=== PATIENT | male | born 1970 | race Caucasian/White ===

== ENCOUNTER 2018-09-15 11:39 | Emergency (ER) | payer OTHER ==
[~2018-09-15] VITALS: Ht 170.2 cm; Wt 99.8 kg
[2018-09-15 12:22] VITALS: BP 129/77
--- NOTE | 2018-09-15 12:50 | NUR ---
c/o posterior neck, shoulders, and lower back pain exacerbation x today----denies recent injury, denies incontinence---ambulatory with steady gait . DENIES N/V/D; SKIN IS PINK/WARM/DRY; AAOX4 WITH EVEN AND STEADY GAIT; LUNGS CLEAR BL; HR EVEN AND REGULAR; PT DENIES ANY FEVER, CP, SOB, OR COUGH AT THIS TIME; PATIENT STATES PAIN OF 10/10 AT THIS TIME; VSS; PATIENT POSITIONED FOR COMFORT; HOB ELEVATED; BEDRAILS UP X2; BED DOWN. ER MD MADE AWARE OF PT STATUS.
[2018-09-15] MEDS ORDERED: KETOROLAC 60 MG/2 ML VIAL IM ONE (13:40)
[2018-09-15] MEDS ORDERED: traMADol 50 MG TAB PO ONE (13:40)
[2018-09-15 14:17] VITALS: BP 129/77
--- NOTE | 2018-09-15 14:18 | NUR ---
Patient discharged with v/s stable. Written and verbal after care instructions given and explained. Patient alert, oriented and verbalized understanding of instructions. Ambulatory with steady gait. All questions addressed prior to discharge. ID band removed. Patient advised to follow up with PMD. Rx of voltaren and [facility] capsaicin given. Patient educated on indication of medication including possible reaction and side effects. Opportunity to ask questions provided and answered.
== END 2018-09-15 14:18 | disposition home or self-care (01) ==
LOC: MED 11:39
DX: G89.29 Other chronic pain (principal); M54.9 Dorsalgia, unspecified; M54.2 Cervicalgia; F43.9 Reaction to severe stress, unspecified; Z76.0 Encounter for issue of repeat prescription
CPT/HCPCS: 96372; 99283; J1885

== ENCOUNTER 2019-02-13 10:56 | Emergency (ER) | payer MEDICAID, OTHER ==
[~2019-02-13] VITALS: Ht 170.2 cm; Wt 90.7 kg
[2019-02-13 10:57] VITALS: BP 135/79
--- NOTE | 2019-02-13 11:06 | NUR ---
PT AMB TO BED 6
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
--- NOTE | 2019-02-13 11:50 | NUR ---
DR. FERNÁNDEZ AT BEDSIDE
[2019-02-13] MEDS ORDERED: KETOROLAC 60 MG/2 ML VIAL IM ONE (12:00)
[2019-02-13 13:04] VITALS: BP 130/80
--- NOTE | 2019-02-13 13:05 | NUR ---
Patient discharged with v/s stable. Written and verbal after care instructions given and explained. Patient alert, oriented and verbalized understanding of instructions. Ambulatory with steady gait. All questions addressed prior to discharge. ID band removed. Patient advised to follow up with PMD. Rx of VOLTAREN, TRAMADOL, PRILOSEC given. Patient educated on indication of medication including possible reaction and side effects. Opportunity to ask questions provided and answered.
== END 2019-02-13 13:05 | disposition home or self-care (01) ==
LOC: MED 10:56
DX: M54.5 Low back pain (principal); M54.2 Cervicalgia; G89.29 Other chronic pain; Z76.0 Encounter for issue of repeat prescription
CPT/HCPCS: 96372; 99283; J1885

== ENCOUNTER 2019-08-22 23:00 | Emergency (ER) | payer MEDICAID ==
[~2019-08-22] VITALS: Ht 170.2 cm; Wt 81.6 kg
[2019-08-22 23:00] VITALS: BP 133/102
--- NOTE | 2019-08-22 23:00 | NUR ---
RACH AND TRANSFERRED FROM [facility] TO BED #11
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
[2019-08-22] MEDS ORDERED: KETOROLAC 30 MG/ML VIAL IM ONE (23:30)
[2019-08-22 23:38] VITALS: BP 133/102
--- NOTE | 2019-08-22 23:38 | NUR ---
PT DISCHARGED WITH PAPERWORK. RX DICLOFENAC. EDUCATED PT REGARDING MEDICATION AND S/E. EDUCATED PT REGARDING D/C DIAGNOSIS AND INSTRUCTIONS. PT VERBALIZED UNDERSTANDING OF TEACHING. TOLD PT TO FOLLOW UP WITH PCP AND WHEN TO RETURN TO ED. PT STABLE CONDITION. ALL QUESTIONS ANSWERED.
== END 2019-08-22 23:38 | disposition home or self-care (01) ==
LOC: MED 23:00
DX: R25.2 Cramp and spasm (principal); F14.10 Cocaine abuse, uncomplicated; M79.602 Pain in left arm
CPT/HCPCS: 96372; 99283; J1885

== ENCOUNTER 2020-05-08 12:12 | Emergency (ER) | payer MEDICAID ==
[~2020-05-08] VITALS: Ht 167.6 cm; Wt 83.5 kg
[2020-05-08 12:16] VITALS: BP 120/92
--- NOTE | 2020-05-08 12:18 | NUR ---
PT TAKEN TO BED 11.
--- NOTE | 2020-05-08 12:27 | NUR ---
DR. ROCHE AT BEDSIDE EVALUATING PATIENT.
[2020-05-08] MEDS ORDERED: KETOROLAC 60 MG/2 ML VIAL IM ONE (12:30)
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
[2020-05-08 12:40] VITALS: BP 120/92
--- NOTE | 2020-05-08 12:40 | NUR ---
Patient discharged with v/s stable. Written and verbal after care instructions given and explained. Patient alert, oriented and verbalized understanding of instructions. Ambulatory with steady gait. All questions addressed prior to discharge. ID band removed. Patient advised to follow up with PMD. Rx of Medrol Dosepak 4mg given. Patient educated on indication of medication including possible reaction and side effects. Opportunity to ask questions provided and answered.
== END 2020-05-08 12:40 | disposition home or self-care (01) ==
LOC: MED 12:12
DX: M54.32 Sciatica, left side (principal); G89.29 Other chronic pain; M54.5 Low back pain; M48.00 Spinal stenosis, site unspecified
CPT/HCPCS: 96372; 99283; J1885

== ENCOUNTER 2020-07-04 09:58 | Emergency (ER) | payer MEDICAID ==
[~2020-07-04] VITALS: Ht 167.6 cm; Wt 79.4 kg
[2020-07-04 10:02] VITALS: BP 154/108
[2020-07-04] MEDS ORDERED: KETOROLAC 60 MG/2 ML VIAL IM ONE (10:20)
[2020-07-04 10:38] VITALS: BP 154/108
== END 2020-07-04 10:38 | disposition home or self-care (01) ==
LOC: MED 09:58
DX: G89.4 Chronic pain syndrome (principal); M54.30 Sciatica, unspecified side; M48.00 Spinal stenosis, site unspecified; Z98.890 Other specified postprocedural states
CPT/HCPCS: 96372; 99283; J1885

== ENCOUNTER 2020-08-05 09:03 | Emergency (ER) | payer MEDICAID ==
[~2020-08-05] VITALS: Ht 170.2 cm; Wt 79.4 kg
[2020-08-05 09:07] VITALS: BP 135/109
[2020-08-05] MEDS: KETOROLAC 60 MG/2 ML VIAL IM ONE (09:57)
[2020-08-05 09:58] VITALS: BP 135/109
== END 2020-08-05 10:01 | disposition home or self-care (01) ==
LOC: MED 09:03
DX: M54.2 Cervicalgia (principal); M54.5 Low back pain; M48.00 Spinal stenosis, site unspecified
CPT/HCPCS: 96372; 99283; J1885

== ENCOUNTER 2020-11-12 05:55 | Emergency (ER) | payer MEDICAID ==
[~2020-11-12] VITALS: Ht 170.2 cm; Wt 79.4 kg
[2020-11-12 06:10] VITALS: BP 142/80
--- NOTE | 2020-11-12 06:10 | NUR ---
to bed ambulatory
--- NOTE | 2020-11-12 06:21 | NUR ---
Pt c/o severe toothache x10 years, but is now "flaring up." When asked which tooth, pt points to all teeth. Pt heard speaking loudly in room and when asked by RN who he was speaking to he said, "The people at the desk." Pt noted with flight of ideas, delusional, stating "I am an elephant but I don't have a sticker." Denies drug use. States he has appt with dental surgeon 11/17/20 but needs pain meds and ATB for tooth infection. Denies other med hx. Ambulatory with steady gait.
[2020-11-12] MEDS ORDERED: KETOROLAC 60 MG/2 ML VIAL IM ONE (06:40)
--- NOTE | 2020-11-12 07:10 | NUR ---
RECEIVED ENDORSEMENT FROM HOSPITAL SUPERVISOR,AWAKE .ALERT, ORIENTEDX3 AMBULATORY AROUND BED. FOR POSSIBLE DISCHARGE.
--- NOTE | 2020-11-12 07:16 | NUR ---
DISCHARGED IN STABLE CONDITION AMBULATORY, DISCHARGE INSTRUCTION GIVEN , VERBALIZED UNDERSTANDING
[2020-11-12 07:19] VITALS: BP 110/75
== END 2020-11-12 07:16 | disposition home or self-care (01) ==
LOC: MED 05:55
DX: K08.89 Other specified disorders of teeth and supporting structures (principal)
CPT/HCPCS: 96372; 99283; J1885

== ENCOUNTER 2020-11-24 13:58 | Emergency (ER) | payer MEDICAID ==
[~2020-11-24] VITALS: Ht 167.6 cm; Wt 77.1 kg
[2020-11-24 13:59] VITALS: BP 121/83
[2020-11-24] MEDS ORDERED: FAMOTIDINE 20 MG TAB PO ONE (14:20)
[2020-11-24] MEDS ORDERED: KETOROLAC 30 MG/ML VIAL IM ONE (14:25)
[2020-11-24] MEDS ORDERED: ACET-9800 PO (14:27)
[2020-11-24] MEDS ORDERED: HYDROmorphone PFS 2 MG/ML SYR ONE (23:52)
== END 2020-11-24 14:45 | disposition home or self-care (01) ==
LOC: MED 13:58
DX: G89.29 Other chronic pain (principal); R10.9 Unspecified abdominal pain; K21.9 Gastro-esophageal reflux disease without esophagitis; Z76.5 Malingerer [conscious simulation]
CPT/HCPCS: 96372; 99283; J1170; J1885

== ENCOUNTER 2020-12-10 13:22 | Emergency (ER) | payer MEDICAID, SELFPAY ==
[~2020-12-10] VITALS: Ht 172.7 cm; Wt 72.6 kg
[~2020-12-10 13:22] MED LIST: ACET-9525 PO; ACET-9800 PO; CIPR500T4 PO; METR500T1 PO; PANT40EC56 PO
[2020-12-10 13:30] VITALS: BP 121/79
--- NOTE | 2020-12-10 13:55 | NUR ---
49 Y/O MALE PRESENTS WITH INCISIONAL PAIN AT [facility], PATIENT STATES HE GOT SURGERY FOR A RUPTURED APPENDICITIS 5 DAYS AGO AND IS NOW HAVE 9/10 PAIN AT SITE. STAPLED INCISION NOTED TO ABDOMEN, DENIES ANY N/V. PATIENT IS POOR HISTORIAN AT THIS TIME AND IS NOT ELABORATING WHEN ASKED ABOUT SURGERY [facility]: 15, AMBULATORY WITH STEADY GAIT
--- NOTE | 2020-12-10 14:20 | NUR ---
Dr. Blevins is evaluating patient at bedside
--- NOTE | 2020-12-10 14:30 | NUR ---
Patient sitting upright in position of comfort. Respirations even/unlabored. Bed locked in lowest position, side rails x 1.
--- NOTE | 2020-12-10 14:35 | NUR ---
Dr. Blevins is reevaluating patient at bedside.
[2020-12-10] MEDS ORDERED: ACET-8203 PO (14:41)
[2020-12-10] MEDS ORDERED: ACET-9882 PO (14:41)
[2020-12-10 15:05] VITALS: BP 118/77
--- NOTE | 2020-12-10 15:05 | NUR ---
dPatient discharged with v/s stable. Written and verbal after care instructions given and explained. Patient alert, oriented and verbalized understanding of instructions. Ambulatory with steady gait. All questions addressed prior to discharge. ID band removed. Patient advised to follow up with PMD. Rx of Tylenol given. Patient educated on indication of medication including possible reaction and side effects. Opportunity to ask questions provided and answered.
== END 2020-12-10 15:05 | disposition home or self-care (01) ==
LOC: MED 13:22
DX: T81.89XA Other complications of procedures, not elsewhere classified, initial encounter (principal); Z76.0 Encounter for issue of repeat prescription
CPT/HCPCS: 99281

== ENCOUNTER 2021-04-19 14:31 | Emergency (ER) | payer MEDICAID ==
[~2021-04-19] VITALS: Ht 167.6 cm; Wt 81.6 kg
[~2021-04-19 14:31] MED LIST changes: +ACET-8203 PO
[2021-04-19 14:44] VITALS: BP 127/96
--- NOTE | 2021-04-19 14:58 | NUR ---
Patient ambulated to chair Angelita Avila is evaluating the patient.
[2021-04-19] MEDS ORDERED: KETOROLAC 30 MG/ML VIAL IM ONE (15:00)
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
--- NOTE | 2021-04-19 15:30 | NUR ---
Patient discharged with v/s stable. Written and verbal after care instructions given and explained. Patient verbalized understanding. Ambulatory with steady gait. All questions addressed prior to discharge. Advised to follow up with PMD.
== END 2021-04-19 15:30 | disposition home or self-care (01) ==
LOC: MED 14:31
DX: G89.29 Other chronic pain (principal); M54.5 Low back pain; K21.9 Gastro-esophageal reflux disease without esophagitis; Z88.1 Allergy status to other antibiotic agents; Z88.6 Allergy status to analgesic agent; Z79.899 Other long term (current) drug therapy; Z98.890 Other specified postprocedural states
CPT/HCPCS: 96372; 99283; J1885

== ENCOUNTER 2021-05-03 12:20 | Emergency (ER) | payer MEDICAID ==
[~2021-05-03] VITALS: Ht 167.6 cm; Wt 81.6 kg
[2021-05-03 13:03] VITALS: BP 142/104
[2021-05-03] MEDS ORDERED: KETOROLAC 30 MG/ML VIAL IM ONE (14:35)
[2021-05-03] MEDS ORDERED: CYCL-711 PO ×2 (14:35→14:40)
[2021-05-03 14:48] VITALS: BP 142/104
--- NOTE | 2021-05-03 14:49 | NUR ---
Patient discharged with v/s stable. Written and verbal after care instructions given and explained. Patient alert, oriented and verbalized understanding of instructions. Ambulatory with steady gait. All questions addressed prior to discharge. ID band removed. Patient advised to follow up with PMD. Rx of FLEXERIL given. Patient educated on indication of medication including possible reaction and side effects. Opportunity to ask questions provided and answered.
== END 2021-05-03 14:49 | disposition home or self-care (01) ==
LOC: MED 12:20
DX: G89.29 Other chronic pain (principal); M54.2 Cervicalgia
CPT/HCPCS: 96372; 99283; J1885

== ENCOUNTER 2022-11-10 15:46 | Emergency (ER) | payer MEDICAID ==
[~2022-11-10] VITALS: Ht 167.6 cm; Wt 90.7 kg
[~2022-11-10 15:46] MED LIST changes: +CYCL-711 PO
[2022-11-10 15:58] VITALS: BP 148/97
--- NOTE | 2022-11-10 16:44 | NUR ---
51/M WALKED IN C/O CHRONIC BACK PAIN. PT REQUESTING MED REFILL FOR NORCO 10MG. PT STATES RUNNING OUT OF MEDS. DENIES RECENT INJURY. pmh: spinal stenosis allergy: amoxicillin med: norco 10mg
[2022-11-10] MEDS ORDERED: HYDR-5191 PO (17:04)
== END 2022-11-10 17:15 | disposition home or self-care (01) ==
LOC: MED 15:46
DX: M54.50 Low back pain, unspecified (principal); Z76.0 Encounter for issue of repeat prescription
CPT/HCPCS: 99283